=== PATIENT | female | born 1980 | race Caucasian/White ===

== ENCOUNTER 2019-01-18 19:22 | Emergency (ER) | payer OTHER ==
[2019-01-18] MEDS ORDERED: Hydrocodone/Acetaminophen 5 mg /300 mg Tab PO STA (19:59)
[2019-01-18] MEDS ORDERED: Tdap Vaccine 0.5 ml Vial (10-64 yrs) IM ONE ×2 (19:59→20:19)
[2019-01-18 20:04] VITALS: BP 107/64; PULSE 80; RESP 20; TEMP 98.8; O2SAT 99
[2019-01-18] MEDS ORDERED: Hydrocodone/Acetaminophen 5 mg /300 mg Tab PO ONE (20:16)
[2019-01-18] MEDS ORDERED: Lidocaine Hydrochloride 5 ML INJ ONE ×2 (20:23→20:52)
--- NOTE | 2019-01-18 21:01 | C.PDOC ---
History Of Present Illness 38-year-old female presents to the emergency department status post being bit by her significant others dog on her left thumb. Patient reports wound to left thumb with bleeding. Time Seen by Provider: 01/18/19 19:44 Chief Complaint (Nursing): Bite History Per: Patient History/Exam Limitations: no limitations Onset/Duration Of Symptoms: Hrs Current Symptoms Are (Timing): Still Present Location Of Injury: Left: Hand (thumb) Quality Of Symptoms: Other (wound, bleeding) - Animal Bite Description Of The Attack: Unprovoked Attack Description Of The Animal: Family Pet Past Medical History Reviewed: Historical Data, Nursing Documentation, Vital Signs Vital Signs: Last Vital Signs Temp 98.8 F 01/18/19 19:42 Pulse 80 01/18/19 19:42 Resp 20 01/18/19 19:42 BP 107/64 01/18/19 19:42 Pulse Ox 99 01/18/19 19:42 - Medical History PMH: No Chronic Diseases Surgical History: No Surg Hx Family History: States: No Known Family Hx - Social History Hx Alcohol Use: No Hx Substance Use: No Review Of Systems Constitutional: Negative for: Fever, Chills Musculoskeletal: Positive for: Hand Pain (left thumb) Skin: Negative for: Rash Neurological: Negative for: Weakness, Numbness Physical Exam - Physical Exam Appears: Well, Non-toxic, No Acute Distress Skin: Normal Color, Warm, Dry, Other (1cm laceration to the lateral aspect of base of left thumb, 1.5cm laceration to the medial aspect of the base of the left thumb. No foreign body.) Extremity: Normal ROM, No Tenderness, No Other (fractures) Pulses: Left Radial: Normal, Right Radial: Normal Neurological/Psych: Oriented x3, Normal Speech, Normal Cognition ED Course And Treatment O2 Sat by Pulse Oximetry: 99 (RA) Pulse Ox Interpretation: Normal Laceration - Laceration Repair Medial Aspect Left Thumb Base Wound Length (In cm): 1.5cm Description Of Wound: Linear Wound Cleansed With: Betadine, Sterile Saline Anesthesia: Lidocaine 1% Wound Examination: Irrigated With Saline, No FB With Wound Exploration Wound Closure: Suture Suture Technique And Material Used: Interrupted, Nylon (5-0) Wound Complexity: Simple Lateral Aspect Left Thumb Base Wound Length (In cm): 1cm Description Of Wound: Linear Wound Cleansed With: Betadine, Sterile Saline Anesthesia: Lidocaine 1% Wound Examination: Irrigated With Saline, No FB With Wound Exploration (5-0) Wound Closure: Suture Suture Technique And Material Used: Interrupted, Nylon Wound Complexity: Simple Medical Decision Making Medical Decision Making: Plan: Laceration repair Amoxil 1 tab PO Motrin 600mg PO Hydrocodone 1tab PO XR Left Hand Due to the size of the laceration and gaping with bleeding, sutures placed with loose approximation to help with closure. Two sutures were placed, each 5-0 nylon, patient still had oozing upon suture placement, will be getting Abx. Disposition Counseled Patient/Family Regarding: Diagnosis, Need For Followup, Rx Given - Disposition Disposition: HOME/ ROUTINE Disposition Time: 21:17 Condition: IMPROVED Prescriptions: Amoxicillin/Clavulanate [Augmentin 875 MG-125 MG] 1 tab PO BID 5 Days tab Instructions: Animal Bites (DC) Forms: [facility] ([place]), General Discharge Instructions - Clinical Impression Clinical Impression: Animal bite wound - PA / [employer] / Resident Statement MD/DO has reviewed & agrees with the documentation as recorded. - Scribe Statement The provider has reviewed the documentation as recorded by the Scribe (Donovan Miles) All medical record entries made by the Scribe were at my direction and personally dictated by me. I have reviewed the chart and agree that the record accurately reflects my personal performance of the history, physical exam, medical decision making, and the department course for this patient. I have also personally directed, reviewed, and agree with the discharge instructions and disposition.
[2019-01-18] MEDS ORDERED: Amoxicillin-Clav 875-125 mg Tab PO STA (21:03)
[2019-01-18] MEDS ORDERED: Amoxicillin-Clav 875-125 mg Tab PO ONE (21:11)
[2019-01-18] MEDS ORDERED: Bacitracin 500 Units/gm Oint Foilpak UD ONE (21:11)
--- NOTE | 2019-01-19 10:44 | RAD ---
Date of service: 01/18/2019 PROCEDURE: Right Thumb radiographs. HISTORY: dog bite COMPARISON: None. TECHNIQUE: AP radiograph of the right hand, as well as spot oblique and lateral images of thumb were obtained. 3 views obtained. FINDINGS: RIGHT THUMB: Normal right thumb, without fracture or focal lesion. Remainder of the right hand (as seen on the AP view) grossly unremarkable. JOINTS: Normal. SOFT TISSUES: Normal. OTHER FINDINGS: None. IMPRESSION: No evidence of acute fracture or dislocation.
== END 2019-01-18 21:25 | disposition home or self-care (01) ==
LOC: C.ER 19:22
DX: S61.012A Laceration without foreign body of left thumb without damage to nail, initial encounter (principal); W54.0XXA Bitten by dog, initial encounter